=== PATIENT | female | born 1955 | race Caucasian/White ===

== ENCOUNTER 2021-12-04 18:19 | Inpatient (IN) | payer OTHER ==
[~2021-12-04] VITALS: Ht 154.9 cm; Wt 114.3 kg
[~2021-12-04 18:19] MED LIST: ASPIR 8181 MG PO; CEFPODOXIME PR200 MG PO; COLACE 100MG C100 MG PO; CORDARONE 200M200 MG PO; ELIQUIS 5 MG TAB5 MG PO; LASIX TAB 20 MG20 MG PO; LIPITOR TAB 2020 MG PO; LOPRESSOR 25 MG25 MG PO; PERCOCET 5-3251 EACH PO; ZESTRIL/PRINIVI10 MG PO; ZOFRAN4 MG PO
[2021-12-04 20:20] LABS: HEMOGLOBIN 13.3 gm/dl (12.3-15.3); RED BLOOD COUNT 4.53 M/UL (4.00-5.10); WHITE BLOOD COUNT 7.5 K/UL (4.5-11.0)
[2021-12-04 20:44] LABS: BUN/CREATININE RATIO 19 (0-10)
--- NOTE | 2021-12-05 00:30 | NUR ---
PT DOESNT HAVE HOME MEDICATION BOTTLES WITH HER. PHARMACY TO REVIEW HOME MEDS IN AM. WILL CONTINUE TO MONITOR.
[2021-12-05] MEDS ORDERED: ATORVASTATIN CA80 MG PO (01:55)
[2021-12-05] MEDS ORDERED: QUETIAPINE FUMA25 MG PO (01:56)
[2021-12-05] MEDS ORDERED: MACROBID 100 M100 MG PO (01:56)
[2021-12-05] MEDS ORDERED: METOPROLOL TAR100 MG PO (01:57)
[2021-12-05] MEDS ORDERED: BUMETANIDE1 MG PO (01:57)
[2021-12-05] MEDS ORDERED: DONEPEZIL HCL10 MG PO (01:57)
[2021-12-05] MEDS ORDERED: VITAMIN D325 MCG PO (02:03)
[2021-12-05 04:26] LABS: HEMOGLOBIN 11.8 gm/dl (12.3-15.3); RED BLOOD COUNT 4.11 M/UL (4.00-5.10); WHITE BLOOD COUNT 6.8 K/UL (4.5-11.0)
[2021-12-05 04:52] LABS: BUN/CREATININE RATIO 20 (0-10)
[2021-12-05] MEDS ORDERED: THERA-M TABLET1 EACH PO (13:08)
--- NOTE | 2021-12-06 10:05 | NUR ---
PATIENT OXYGEN LEVEL ON ROOM AIR IS 86. O2 AT 3L PLACED ON PATIENT. O2 SAT 99% ON 3L.
[2021-12-06 10:20] LABS: HEMOGLOBIN 12.4 gm/dl (12.3-15.3); RED BLOOD COUNT 4.31 M/UL (4.00-5.10); WHITE BLOOD COUNT 5.6 K/UL (4.5-11.0)
[2021-12-06 12:25] LABS: ADENOVIRUS F 40/41 Not Detected (Negative); ASTROVIRUS Not Detected (Negative); CAMPYLOBACTER Not Detected (Negative); CRYPTOSPORIDIUM Not Detected (Negative); E.COLI 0157 Not Detected (Negative); ENTAMOEBA HISTOLYTICA Not Detected (Negative); ENTEROAGGREGATIVE E.COLI (EAEC Not Detected (Negative); ENTEROPATHOGENIC E.COLI (EPEC) Not Detected (Negative); ENTEROTOXIGENIC E.COLI (ETEC) Not Detected (Negative); GIARDIA LAMBLIA Not Detected (Negative); NOROVIRUS GI/GII Not Detected (Negative); PLESIOMONAS SHIGELLOIDES Not Detected (Negative); ROTOVIRUS A Not Detected (Negative); SALMONELLA Not Detected (Negative); SAPOVIRUS Not Detected (Negative); SHIG/ENTEROINVAS.ECOLI (EIEC) Not Detected (Negative); SHIGA-LIK TOX.PRO.E.COLI (STEC Not Detected (Negative); VIBRIO Not Detected (Negative); VIBRIO CHOLERAE Not Detected (Negative); YERSINIA ENTEROCOLITICA Not Detected (Negative)
[2021-12-07 04:43] LABS: HEMOGLOBIN 12.8 gm/dl (12.3-15.3); RED BLOOD COUNT 4.42 M/UL (4.00-5.10)
[2021-12-07] MEDS ORDERED: DOXYCYCLINE HY100 M2 PO (17:15)
[2021-12-07] MEDS ORDERED: LOPRESSOR 50 MG50 MG PO ×2 (17:15)
[2021-12-07] MEDS ORDERED: FLORANEX GRANU1 EACH PO (17:21)
[2021-12-07] MEDS ORDERED: HUMIBID LA TAB600 MG PO (17:21)
[2021-12-07] MEDS ORDERED: TAMIFLU 30 MG CAP PO (17:21)
[2021-12-07] MEDS ORDERED: COMBIVENT RESPIM4 GM INH (18:20)
[2021-12-07] MEDS ORDERED: OMNICEF 300 MG300 MG PO (18:20)
--- NOTE | 2021-12-07 19:04 | NUR ---
PATIENTS SISTER REQUESTED ZERO KNEE FOAM FOR PATIENT. CONTACTED AND AGREEDED TO ORDER FOR PATIENT. [employer]NAL [employer]FF[employer] COMMANDER CONTACTED AND GETTING ZERO KNEE FOR PATIENT.
--- NOTE | 2021-12-07 23:25 | NUR ---
PATIENTS BP 162/88 MANUAL MD NOTIFIED AND STATED BP IS OK NO NEW ORDERS AT THIS TIME
[2021-12-08 02:37] LABS: HEMOGLOBIN 12.6 gm/dl (12.3-15.3); RED BLOOD COUNT 4.38 M/UL (4.00-5.10); WHITE BLOOD COUNT 5.3 K/UL (4.5-11.0)
[2021-12-08] MEDS ORDERED: PULMICORT0.5 MG/2 M INH (10:17)
[2021-12-08] MEDS ORDERED: HYDRALAZINE HCL25 MG PO ×2 (10:17→10:30)
[2021-12-08] MEDS ORDERED: IPRAT-ALBUT 0.5-3 ML INH (10:17)
[2021-12-08] MEDS ORDERED: TAMIFLU 30 MG CAP PO (10:19)
== END 2021-12-08 11:55 | disposition home or self-care (01) | DRG 152 ==
LOC: ER1 18:19 → M/S 23:07 → CDU 23:07 → M/S 23:07
PROVIDERS: Internal Medicine; Physician Assistant; ADMIT Internal Medicine
PROC: B24BZZZ Ultrasonography of Heart with Aorta (ICD-10-PCS; principal; 2021-12-07)
DX: J11.1 Influenza due to unidentified influenza virus with other respiratory manifestations (principal); J96.01 Acute respiratory failure with hypoxia; Z20.822 Contact with and (suspected) exposure to COVID-19; N17.0 Acute kidney failure with tubular necrosis; I47.1 Supraventricular tachycardia; E66.2 Morbid (severe) obesity with alveolar hypoventilation; I48.21 Permanent atrial fibrillation; I69.351 Hemiplegia and hemiparesis following cerebral infarction affecting right dominant side; I50.32 Chronic diastolic (congestive) heart failure; I13.0 Hypertensive heart and chronic kidney disease with heart failure and stage 1 through stage 4 chronic kidney disease, or unspecified chronic kidney disease; N39.0 Urinary tract infection, site not specified; Z68.42 Body mass index [BMI] 45.0-49.9, adult; I08.1 Rheumatic disorders of both mitral and tricuspid valves; N18.9 Chronic kidney disease, unspecified; J40 Bronchitis, not specified as acute or chronic; F01.50 Vascular dementia, unspecified severity, without behavioral disturbance, psychotic disturbance, mood disturbance, and anxiety; E03.9 Hypothyroidism, unspecified; R19.7 Diarrhea, unspecified; F41.9 Anxiety disorder, unspecified; I27.20 Pulmonary hypertension, unspecified; F32.A Depression, unspecified; I25.10 Atherosclerotic heart disease of native coronary artery without angina pectoris; E78.5 Hyperlipidemia, unspecified; Z95.1 Presence of aortocoronary bypass graft; Z79.01 Long term (current) use of anticoagulants; Z82.49 Family history of ischemic heart disease and other diseases of the circulatory system; Z99.81 Dependence on supplemental oxygen; Z90.49 Acquired absence of other specified parts of digestive tract; Z98.891 History of uterine scar from previous surgery; Z87.891 Personal history of nicotine dependence; I25.2 Old myocardial infarction
CPT/HCPCS: 36415; 36600; 71045; 80048; 80053; 81001; 82550; 82553; 82803; 83036; 83605; 83735; 83880; 84100; 84484; 85025; 85027; 86140; 87040; 87086; 87507; 93005; 94640; 94664; 94760; 99285; G0378; J0696; U0002